=== PATIENT | male | born 1980 | race Caucasian/White ===

== ENCOUNTER → 2020-03-30 | Outpatient (CLI) | payer BC ==
--- NOTE | 2020-03-30 09:14 | CT ---
EXAMINATION TYPE: CT abdomen pelvis w con DATE OF EXAM: 03/30/2020 COMPARISON: None. HISTORY: abdominal wall mass, RUQ pain/swelling CT DLP: 953.2 mGycm, Automated Exposure Control for Dose Reduction was Utilized. CONTRAST: CT scan of the abdomen and pelvis is performed without oral but with IV Contrast, patient injected wi th 100 mL of Isovue 300. FINDINGS: LUNG BASES: No significant abnormality is appreciated. LIVER/GB: No significant abnormality is appreciated. PANCREAS: No significant abnormality is seen. SPLEEN: No significant abnormality is seen. ADRENALS: No significant abnormality is seen. KIDNEYS: Symmetric cortical medullary uptake and excretion without hydronephrosis seen bilaterally. BOWEL: Normal-appearing appendix seen from cecum. No suspicious small or large bowel dilatation. Slig htly suboptimal evaluation of bowel without enteric contrast. PROSTATE/SEMINAL VESICLES: No gross abnormality seen. LYMPH NODES: No greater than 1cm abdominal or pelvic lymph nodes are appreciated. OSSEOUS STRUCTURES: No significant abnormality is seen. OTHER: There is ventral wall hernia in the upper abdomen midline with 1.6 cm neck axial image 23, thi s contains fat and mesenteric vessels extending mostly to right of midline. This is roughly 12 to 13 cm cranial to the umbilicus. IMPRESSION: There is a ventral wall hernia in the upper abdomen containing fat and tiny mesenteric ve ssels likely accounting for patient's clinical symptoms of palpable mass and pain.
== END | disposition home or self-care (01) ==
LOC: RADCTMAIN 08:22
PROVIDERS: ATTEND Surgery
DX: K43.9 Ventral hernia without obstruction or gangrene (principal)
CPT/HCPCS: 74177; Q9967

== ENCOUNTER 2020-05-14 08:53 | Day surgery (SDC) | payer BC ==
[2020-05-11 12:14] VITALS: BMI 33.1
--- NOTE | 2020-05-14 07:58 | P.GSHP ---
History of Present Illness H&P Date: 05/14/20 Chief Complaint: ventral hernia incarcerated 40-year-old male here today for elective repair incarcerated ventral hernia. Patient states this has been increasing in size of the last 5-7 years. Mild pain at times. Increased discomfort after meals. Recent CAT scan confirmed incarcerated ventral hernia containing fat. Past Medical History Past Medical History: No Reported History Additional Past Medical History / Comment(s): MIGRAINE HEADACHE , SEASONAL ALLERGIES , History of Any Multi-Drug Resistant Organisms: None Reported Additional Past Surgical History / Comment(s): DENTAL SURGERY WITH ANESTHESIA Past Anesthesia/Blood Transfusion Reactions: No Reported Reaction Smoking Status: Former smoker - Past Family History Mother Family Medical History: No Reported History Medications and Allergies Home Medications Medication Instructions Recorded Confirmed Type Acetaminophen Tab [Tylenol] 650 mg PO Q4H PRN 05/11/20 05/11/20 History Fluticasone Nasal [place]way [Flonase 1 - 2 spr EA NOSTRIL DAILY 05/11/20 05/11/20 History Nasal [place]way] Allergies Allergy/AdvReac Type Severity Reaction Status Date / Time No Known Allergies Allergy Verified 05/11/20 11:43 Surgical - Exam Physical exam: General: Well-developed, well-nourished HEENT: Normocephalic, sclerae nonicteric Abdomen: Nontender, nondistended, palpable mass midway between umbilicus and xiphoid 6-7 cm nonreducible mildly tender Extremities: No edema Neuro: Alert and oriented Assessment and Plan (1) Incarcerated ventral hernia Narrative/Plan: Will proceed with repair incarcerated ventral hernia with mesh. Risks of bleeding, infection, recurrence, scarring, numbness, mesh related compilations reviewed. He understands and wishes to proceed. Status: Acute Code(s): K43.6 - OTHER AND UNSP VENTRAL HERNIA WITH OBSTRUCTION, W/O GANGRENE SNOMED Code(s): 314084618
[~2020-05-14 08:53] MED LIST: ACETAMINOPHEN TAB 500 MG TAB PO ONE; HEPARIN SODIUM,PORCINE 5,000 UNIT/ML 1 ML VIAL SQ ONE
[2020-05-14] MEDS ORDERED: ONDANSETRON 4 MG/2 ML VIAL ONE ×2 (09:14→14:17)
[2020-05-14] MEDS ORDERED: LACTATED RINGERS 1,000 ML IV ONE ×2 (09:37→13:11)
[2020-05-14] MEDS ORDERED: DEXAMETHASONE SOD PHOSPHATE 4 MG/ML 1 ML VIAL IV ONE (09:38)
[2020-05-14] MEDS ORDERED: MIDAZOLAM 2 MG/2 ML VIAL IV ONE (09:56)
[2020-05-14] MEDS ORDERED: fentaNYL (PF) 50 MCG/ML 2 ML AMP IV ONE (09:56)
--- NOTE | 2020-05-14 10:20 | P.ANPRN ---
Procedure Note - Anesthesia - Nerve Block Performed Bilateral Transversus Abdominis Single Time Out Performed: Yes Date of Procedure: 05/14/20 Procedure Start Time: 09:55 Procedure Stop Time: 10:04 Location of Patient: PreOp Indication: Acute Post-Operative Pain, Requested by Surgeon Sedation Type: Sedate with meaningful contact maintained Preparation: Sterile Prep Position: Supine Needle Types: Pajunk Ultrasound used to visualize needle placement: Yes Ultrasound used to observe medication spread: Yes Injectate: 0.5% Ropivacaine (see comment for volume) (30 ml with decadron 4 mg) Blood Aspirated: No Pain Paresthesia on Injection Noted: No Resistance on Injection: Normal Image Stored and Saved: Yes Events: Uneventful and Well Tolerated
[2020-05-14] MEDS ORDERED: NEOSTIGMINE 1 MG/ML 10 ML VIAL ONE (10:54)
[2020-05-14] MEDS ORDERED: SUCCINYLCHOLINE CHLORIDE VIAL 200 MG/10 ML VIAL IV ONE (10:54)
[2020-05-14] MEDS ORDERED: LIDOCAINE 1% INJ 10MG/ML (20 ML MDV) ONE (10:54)
[2020-05-14] MEDS ORDERED: HYDROmorphone (PF) 1 MG/ML ONE (10:54)
[2020-05-14] MEDS ORDERED: GLYCOPYRROLATE 0.2 MG/ML 2 ML VIAL ONE (10:54)
[2020-05-14] MEDS ORDERED: PROPOFOL 10 MG/ML 20 ML VIAL IV ONE (10:54)
[2020-05-14] MEDS ORDERED: ROPIVACAINE 5 MG/ML 30 ML VIAL ONE (10:54)
[2020-05-14] MEDS ORDERED: ROCURONIUM 10 MG/ML (10 ML VIAL) IV ONE (10:54)
--- NOTE | 2020-05-14 12:10 | P.OP ---
Date of Procedure: 05/14/20 Procedure(s) Performed: PREOPERATIVE DIAGNOSIS: Incarcerated ventral hernia POSTOPERATIVE DIAGNOSIS: Same PROCEDURE: Incarcerated the ventral hernia repair with mesh, partial omentectomy SURGEON: Silvestre EBL: Minimal ANESTHESIA: Gen. COMPLICATIONS: None OPERATIVE PROCEDURE: Patient placed on the operating table in the supine position. Abdomen was prepped and draped in usual sterile fashion. A vertical incision was then made midway between the umbilicus and xiphoid dissection through the subcutaneous tissues took place using electrocautery. The patient had a moderate to large hernia sac containing a large volume of omentum. The hernia sac and the omentum were then excised using the LigaSure device. A single defect was identified after clearing the fascia of overlying fat. This fascial defect measured 2.5 x 1.5 cm. This was oriented horizontally. The preperitoneal space was dissected using blunt dissection and cautery. We had adequate space now for a sizable mesh. The 6.4 cm ventral ex mesh was placed in the preperitoneal space and sutured to the fascia using trans-fascial 0 Ethibond sutures. Following that the defect was reapproximated using interrupted 0 Ethibond mattress sutures in a horizontal fashion. The folding edge was sutured down using interrupted 0 Ethibond sutures as well. The subcutaneous tissues were closed using 20 and 3-0 Vicryl sutures. The skin was closed using a running 4-0 Monocryl suture. Skin glue and sterile dressings were applied. DISPOSITION: Stable to recovery room
[2020-05-14 12:24] VITALS: TEMP 97.5
[2020-05-14 12:35] VITALS: RESP 16
[2020-05-14] MEDS ORDERED: HYDROmorphone 0.5 MG/0.5 ML SYRINGE IVP ONE ×3 (12:40→12:48)
[2020-05-14] MEDS ORDERED: KETOROLAC 15 MG/ML 1 ML VIAL IVP ONE (12:50)
[2020-05-14] MEDS ORDERED: ONDANSETRON 4 MG/2 ML VIAL IVP ONE (14:19)
[2020-05-14] MEDS ORDERED: IBUPROFEN 600 MG TAB PO SCH (15:00)
[2020-05-14 17:35] VITALS: BP 142/80; PULSE 98
[2020-05-14] MEDS ORDERED: ACETAMINOPHEN TAB 325 MG TAB PO SCH (18:00)
== END 2020-05-14 17:55 | disposition home or self-care (01) ==
LOC: OR 08:53
PROVIDERS: ATTEND Surgery
DX: K43.6 Other and unspecified ventral hernia with obstruction, without gangrene (principal); G43.909 Migraine, unspecified, not intractable, without status migrainosus; J30.2 Other seasonal allergic rhinitis; Z98.818 Other dental procedure status; Z87.891 Personal history of nicotine dependence; Z79.899 Other long term (current) drug therapy
CPT/HCPCS: 64488; 88305; 49561; 49568; C1781; J2250; J0330; J1644; J1100; J2710; J0690; J2405; J2001; J3010; J1170 ×2; J2795; J1885; J2704

== ENCOUNTER → 2020-05-31 | Outpatient (CLI) | payer BC ==
--- NOTE | 2020-05-31 11:53 | CONS ---
CONSULTATION DATE OF SERVICE: 05/31/2020. A 40-year-old gentleman who has been evaluated in the Sleep Center for possible obstructive sleep apnea-hypopnea syndrome. HISTORY OF PRESENT ILLNESS/SLEEP-WAKE EVALUATION: Patient usual sleep schedule on working days is from 9 or 10 p.m. until 5:30 - 6 am, on weekends from 10 or 11 p.m. to 7 or 8 a.m. Sometimes he has problems with falling asleep, although no TV in bedroom. He prefers to sleep on the side position and stomach. He has extremely loud snoring and witnessed episodes of stopped breathing during sleep by his . He wakes up with gasping for air, restless leg symptoms, grinding teeth and sweating. No history of hypnagogic hallucinations, sleep paralysis or cataplexy. He takes naps when he can. [place] Sleepiness Scale significantly increased to 16. No vivid dreams during naps. PAST MEDICAL HISTORY: Positive for multiple ear infection with ear tube insertions, sinus headaches, hyperlipidemia. PAST SURGICAL HISTORY: Ear tube insertions, hernia repair. MEDICATIONS: Flonase two sprays each nostril once a day. Zantac once a day. SOCIAL HISTORY: Negative for smoking or using alcohol. FAMILY HISTORY: Hypertension, hyperlipidemia, asthma, sinus problems. Lungs problems since his AL, snoring, mental illness, restless legs, ulcers. PHYSICAL EXAM: gentleman without distress, BP 147/91, HR 71, RR 16, height 5 foot 8-1/2 inches, weight 194.6 pounds, temperature 97.7, oxygen saturation at room air 97%. OROPHARYNX: Extremely low position of soft palate. Mallampati 4. NECK: 18 inches in circumference. Body mass index 33.8. LUNGS: Clear to percussion and to auscultation. Good air exchange. No wheezing or rhonchi. HEART: S1, S2 regular. No murmurs, gallops, or rubs. ABDOMEN: Soft and nontender. Bowel sounds are present. No organomegaly appreciated. EXTREMITIES: No clubbing or cyanosis. SLEEPING CAR PORTER: Awake, alert, and oriented X3. Cranial nerves 2 to 7 intact. There is no fasciculation or atrophy. noted. No focal deficits observed. IMPRESSION: 1. Loud snoring, witnessed episodes of stopped breathing during the sleep, low position of soft palate, wide neck, sleepiness, obstructive sleep apnea-hypopnea syndrome. 2. Seasonal allergy. 3. History of sinus headaches. 4. Mild obesity. 5. History of restless leg symptoms. 6. History of ear infection with a multiple ear tube insertions. 7. Status post adenoidectomy. 8. Status post hernia repair. 9. Hyperlipidemia. PLAN: 1. Home sleep apnea test for evaluation of patient breathing during the sleep. 2. CPAP/BiPAP titration if sleep study confirms obstructive sleep apnea-hypopnea syndrome. 3. Preferable position during sleep on the side. 4. No driving if patient feels any sleepiness. 5. I will see patient for follow up visit to explain results of testing and following plan. Thank you very much for referring this patient for consultation. Sincerely, Nabeel Sabillon MD, PhD, FAASM Diplomat of [employer] [place] [place] [employer] Transit Worker of [facility] [place] MMODL / [place]: [id number] /
== END | disposition home or self-care (01) ==
LOC: SLEEP 10:17
PROVIDERS: ATTEND Internal Medicine
DX: G47.33 Obstructive sleep apnea (adult) (pediatric) (principal); J30.2 Other seasonal allergic rhinitis; E78.5 Hyperlipidemia, unspecified; E66.9 Obesity, unspecified; Z86.69 Personal history of other diseases of the nervous system and sense organs; Z98.890 Other specified postprocedural states; Z86.79 Personal history of other diseases of the circulatory system; Z87.39 Personal history of other diseases of the musculoskeletal system and connective tissue; Z79.899 Other long term (current) drug therapy
CPT/HCPCS: 99211

== ENCOUNTER → 2020-08-08 | Outpatient (CLI) | payer BC ==
--- NOTE | 2020-08-08 14:21 | SFUN ---
SLEEP CENTER FOLLOW UP NOTE DATE OF SERVICE: 08/08/2020 This 40-year-old gentleman had been followed in Sleep Center for treatment of obstructive sleep apnea-hypopnea syndrome. This is his first visit after he received CPAP unit. He has problems with using CPAP because he feels that when he starts using it the pressure is too low and difficult for him to breathe. In the middle of the night if he wakes up, he feels the pressure is too much. He also feels that it is too much heat in his mask. I explained the results of sleep study to the patient in detail. He had the home sleep apnea test which showed an apnea-hypopnea index around 16. With the machine, patient has rare episodes of snoring worse how it was before. [place] Sleepiness Scale today is 10. During the first visit before treatment, it was 16. MEDICATIONS: Flonase 2 sprays each nostril once a day, Zantac once a day. I checked the patient CPAP unit. CPAP pressure is 5-15 cm of water in automatic regimen. Average pressure is 10.5. Usage is 30 out of 30 nights for more than 4 hours, average 6.2 hours per night. Leak is only 1 L/minute which is perfect. Apnea-hypopnea index is 2.2, which absolutely normal. PHYSICAL EXAMINATION: GENERAL: Patient in no distress. VITAL SIGNS: BP 132/87, HR 82, RR 15, weight 202.6, temperature 97.9, oxygen saturation at room air 99%. HEENT: PERRLA, EOMI. Oropharynx extremely low position of soft palate. Mallampati 4. NECK: Supple, no JVD. Thyroid is not palpable. LUNGS: Clear to percussion and to auscultation. Good air exchange. No wheezing or rhonchi. HEART: S1, S2 regular. No murmurs, gallops, or rubs. ABDOMEN: Slightly obese. EXTREMITIES: No clubbing or cyanosis. VERIFICATION MANAGER: Awake, alert, and oriented X3. Cranial nerves 2 to 7 intact. There is no fasciculation or atrophy. noted. No focal deficits observed. IMPRESSION: 1. Obstructive sleep apnea-hypopnea syndrome in moderate range. The patient demonstrated 100% compliance with treatment, benefitting from treatment, experiencing some difficulties with usage of the machine. Improvement of [place] Sleepiness Scale from 16 came down to 10. 2. Seasonal allergy. 3. History of sinus headaches. 4. Mild obesity. 5. History of restless leg symptoms. 6. History of ear infection with multiple ear tube insertion. 7. Status post adenoidectomy. 8. Status post hernia repair. 9. Hyperlipidemia. PLAN: 1. I changed regimen of the CPAP unit, minimal pressure increased to 6 cm of water, ramp I put to automatic regimen, EPR, I increased to 3 cm of water, humidifier regimen, I changed down to 3. I explained to the patient in detail how to adjust humidifier. He should consider to change the temperature in the tube also down, but I cannot do it now because patient did not bring his tube with him and to adjust tube has to be connected to the machine. 2. Patient will continue to use PAP equipment every night for the whole night. 3. Sleep hygiene with regular time in bed for at least 7-1/2 to 8 hours. 4. Precautions related to driving. No driving if feeling sleepiness. 5. I will maintain all necessary prescription for PAP supplies including mask, tube, filters. 6. Watching weight. 7. No driving if feeling sleepiness. 8. Follow-up visit in 3 months or earlier if patient has any problems. Thank you very much for allowing me to participate in management of your patient. Sincerely, Nabeel Sabillon MD, PhD, FAASM Diplomat of [employer] [employer] Well Site Drilling Engineer of [facility] [place] RAFAEL / [place]: [phone] /
== END | disposition home or self-care (01) ==
LOC: SLEEP 11:33
PROVIDERS: ATTEND Internal Medicine
DX: G47.33 Obstructive sleep apnea (adult) (pediatric) (principal); E66.9 Obesity, unspecified; E78.5 Hyperlipidemia, unspecified; J30.2 Other seasonal allergic rhinitis; Z98.890 Other specified postprocedural states; Z86.59 Personal history of other mental and behavioral disorders; Z99.89 Dependence on other enabling machines and devices; Z86.19 Personal history of other infectious and parasitic diseases

== ENCOUNTER 2021-07-17 07:13 | Day surgery (SDC) | payer BC ==
[2021-07-11 11:20] VITALS: BMI 33.5
[~2021-07-17 07:13] MED LIST changes: -ACETAMINOPHEN TAB 500 MG TAB PO ONE; +DEXAMETHASONE SOD PHOSPHATE 4 MG/ML 1 ML VIAL IV PRN; +FAMOTIDINE 20 MG/2 ML VIAL IV PRN; -HEPARIN SODIUM,PORCINE 5,000 UNIT/ML 1 ML VIAL SQ ONE; +ONDANSETRON 4 MG/2 ML VIAL IVP PRN; +metroNIDAZOLE-NS PMX 500 MG in SALINE 1 100ML.BAG IVPB PRN
[2021-07-17] MEDS ORDERED: fentaNYL (PF) 50 MCG/ML 2 ML AMP IV PRN (07:36)
[2021-07-17] MEDS ORDERED: LACTATED RINGERS 1,000 ML IV SCH ×2 (07:36)
[2021-07-17] MEDS ORDERED: LIDOCAINE 1% (10MG/ML) FOR IV START INTRADERMA PRN (07:36)
[2021-07-17] MEDS: OXYMETAZOLINE 0.05% NASL SPRAY 1 SPRAY BOTTLE EA NOSTRIL PRN ×5 (07:50→08:10)
[2021-07-17] MEDS ORDERED: LIDOCAINE 1% (10MG/ML) FOR IV START SQ ONE (08:07)
[2021-07-17] MEDS ORDERED: SCOPOLAMINE 1.5MG/72HR PATCH TRANSDERM ONE (08:14)
[2021-07-17] MEDS ORDERED: GLYCOPYRROLATE 0.2 MG/ML 2 ML VIAL ONE (09:21)
[2021-07-17] MEDS ORDERED: ROCURONIUM 10 MG/ML (5 ML VIAL) IV ONE (09:21)
[2021-07-17] MEDS ORDERED: MIDAZOLAM 2 MG/2 ML VIAL ONE (09:21)
[2021-07-17] MEDS ORDERED: PROPOFOL 10 MG/ML 20 ML VIAL IV ONE (09:21)
[2021-07-17] MEDS ORDERED: SUCCINYLCHOLINE CHLORIDE 100 MG/5 ML SYR IV ONE (09:21)
[2021-07-17] MEDS ORDERED: fentaNYL (PF) 50 MCG/ML 2 ML AMP ONE (09:21)
[2021-07-17] MEDS ORDERED: LIDOCAINE 1% INJ 10MG/ML (20 ML MDV) ONE (09:21)
[2021-07-17] MEDS ORDERED: NEOSTIGMINE 1 MG/ML 10 ML VIAL ONE (09:21)
[2021-07-17] MEDS ORDERED: BACITRACIN ZINC 500 UNIT/GM OINT 28.4 GM TUBE TOPICAL ONE ×3 (09:46→10:15)
[2021-07-17] MEDS ORDERED: OFLOXACIN 0.3% OPHTH DROPS 5 ML BOTTLE BOTH EARS ONE (09:46)
[2021-07-17] MEDS ORDERED: LIDOCAINE 1%-EPI 1:100,000 20 ML VIAL SQ ONE ×2 (09:46→10:01)
--- NOTE | 2021-07-17 10:33 | P.OP ---
Date of Procedure: 07/17/21 Preoperative Diagnosis: Bilateral chronic otitis media with effusion Deviated nasal septum Inferior turbinate hypertrophy Postoperative Diagnosis: Same Procedure(s) Performed: Bilateral ventilation tube placement Septoplasty Outfracture and submucous resection of the inferior turbinates Nasal endoscopy with bilateral balloon eustachian tuboplasty Anesthesia: ALLAN Surgeon: Rodney Villa Estimated Blood Loss (ml): 5 Pathology: other (Nasal septal bone and cartilage) Condition: stable Disposition: PACU Indications for Procedure: The 41-year-old white male whose had difficulties with chronic and recurrent otitis media with conductive hearing loss for many years. He's had ventilation tubes previously. He also has chronic nasal airway obstruction bilaterally that has not improved with medical management. Operative Findings: Bilateral mucoid otitis media, inferior turbinate hypertrophy, septum deviated to the right Description of Procedure: DESCRIPTION OF PROCEDURE: The patient was brought to the operative suite, placed in the supine position. The patient underwent induction of general anesthesia with oral endotracheal intubation without difficulty. The patient was prepped and draped in the usual aseptic fashion. 1% lidocaine with 1:100,000 epinephrine was infused submucosally on both sides of the nasal septum. While this was taking vasoconstrictive effect, the inferior turbinates were infractured with a Cullman elevator. Partial submucous resection of the inferior turbinates was performed with Coblation device ablating a portion of the submucosal soft tissue. The inferior turbinates were then outfractured with a Cullman elevator. A left hemitransfixion incision was then made through the mucoperichondrial. Mucoperiosteal flap on the left elevated. Bony cartilaginous junction was disarticulated and mucoperiosteal flap on the right was elevated. Bony nasoseptal deformity were removed with Natalia forceps and an inferior cartilaginous strip was removed, leaving a full 1.5 cm caudal strut. Checking i ntranasally, this corrected the nasal septal deformities and the hemitransfixion incision was closed with running 4-0 chromic suture. Full 0 nasal endoscopy was performed bilaterally the eustachian tube orifice was well visualized and eustachian tuboplasty was performed with the Acclarent eustachian balloon tuboplasty system and this was performed bilaterally. Good hemostasis was noted. The bilateral Lezama airway splints coated in bacitracin ointment were placed in the nasal cavities and sutured transseptally with 4-0 nylon suture. The patient was then suctioned in an orogastric fashion. The patient was reprepped and draped in usual aseptic fashion and the Zeiss microscope was positioned over the left ear and the tympanic membrane was well visualized and an anteroinferior myringotomy was placed in radial fashion. The middle ear effusion was aspirated and a 1.27 mm triune ventilation tube was placed without difficulty. Ofloxacin otic suspension was placed in the external auditory canal followed by sterile cotton ball. Attention was then turned to the right where the procedure was followed exactly as it was on the left. The patient was allowed to emerge from general anesthesia, having tolerated the procedure well and was extubated in the operating suite, transferred to postoperative recovery area in satisfactory condition.
[2021-07-17 10:54] VITALS: TEMP 97
[2021-07-17] MEDS ORDERED: hydrALAZINE HCL 20 MG/ML 1 ML VIAL IVP ONE (11:35)
[2021-07-17] MEDS ORDERED: HYDROcodone/APAP 5-325MG 1 EACH TAB ONE (12:30)
[2021-07-17] MEDS ORDERED: HYDROcodone/APAP 5-325MG 1 EACH TAB PO ONE (12:34)
[2021-07-17 13:18] VITALS: RESP 12
[2021-07-17 13:24] VITALS: BP 121/74; PULSE 84
== END 2021-07-17 13:39 | disposition home or self-care (01) ==
LOC: OR 07:13
PROVIDERS: ATTEND Otolaryngology
DX: H65.493 Other chronic nonsuppurative otitis media, bilateral (principal); J34.2 Deviated nasal septum; J34.3 Hypertrophy of nasal turbinates; L30.9 Dermatitis, unspecified; H93.19 Tinnitus, unspecified ear; Z87.891 Personal history of nicotine dependence; Z79.52 Long term (current) use of systemic steroids; Z98.890 Other specified postprocedural states; Z82.49 Family history of ischemic heart disease and other diseases of the circulatory system; Z82.5 Family history of asthma and other chronic lower respiratory diseases; Z83.42 Family history of familial hypercholesterolemia; G47.33 Obstructive sleep apnea (adult) (pediatric); Z79.899 Other long term (current) drug therapy; J30.2 Other seasonal allergic rhinitis; Z91.048 Other nonmedicinal substance allergy status
CPT/HCPCS: 69436; 30520; 30140; 69799; 88300; C1726; J2250; J0360; J1100; J2710; J0690; J2405; J2001; J3010; J0330; J2704